=== PATIENT | female | born 1970 | race Caucasian/White ===

== ENCOUNTER → 2016-08-25 | Day surgery (SDC) | payer BC ==
[2016-08-18 12:17] VITALS: BMI 25.0
[~2016-08-25] VITALS: Ht 162.6 cm; Wt 68.2 kg
[~2016-08-25] MED LIST: ARMOUR THYROID PO; BCPILLS PO; GABA1CAP5 PO; LIDOCAINE HCL 2% 2 ML VIAL (20MG/ML) ONE; MIDAZOLAM HCL 1 MG/ML 2ML VIAL ONE; ONDANSETRON INJ 2 MG/ML 2 ML VIAL ONE; PROPOFOL IV EMULSION 10 MG/ML 20 ML VIAL IV ONE; SODIUM CHLORIDE 0.9% 500ML 500 ML IV ONE; THYR15TA PO
[2016-08-25 09:39] VITALS: Ht 162.6 cm; Wt 68.2 kg
--- NOTE | 2016-08-25 10:23 | Endo History and Physical ---
History & Physical Date of Service: Aug 25, 2016. Chief Complaint: RECTAL PAIN Referring Physician: DR. DONNY HAYNES History of Present Illness 46 yo CF who presents for colonoscopy secondary to rectal pain. Past Medical History Thyroid Disease Past Surgical History Hx Cardiac Surgery: No Hx Internal Defibrillator: No Hx Pacemaker: No Hx Abdominal Surgery: No Hx of Implantable Prosthesis: No Hx Post-Op Nausea and Vomiting: No Hx Cancer Surgery: No Hx Thoracic Surgery: No Hx Orthopedic: Yes (LT ACHILLES TENDON REPAIR, SI JOINT INJECTIONS) Hx Urinary Tract Surgery: No Family History Polyp Social History Smoking Status: Never Smoker Hx Substance Use: No Hx Alcohol Use: Yes (SOCIAL) Allergies Coded Allergies: Morphine (Verified Allergy, Severe, ANAPHYLAXIS, 08/18/16) Prednisone (Verified Allergy, Intermediate, RASH, 08/18/16) ALLERGY TESTED OK FOR METHYLPREDNISONE Codeine (Verified Adverse Reaction, Intermediate, GI UPSET, 08/18/16) Hydrocodone (Verified Adverse Reaction, Intermediate, GI UPSET, 08/18/16) Current Medications Reported Home Medications Medications Dose Route/Sig Max Daily Dose Days Date Category [[place] Thyroid] 60 Mg PO QAM 06/05/16 Reported Neurontin (Gabapentin) 400 Mg Cap 400 Mg PO TID 06/05/16 Reported Control Pills (Miscellaneous) Tab 1 Tab PO HS 06/05/16 Reported [place] Thyroid (Thyroid) 15 Mg Tab 1 Tab PO QAM 06/05/16 Reported Vital Signs Weight (Kilograms): 68.18 Height (Feet): 5 Height (Inches): 4 Date Time Temp Pulse Resp B/P Pulse Ox O2 Delivery O2 Flow Rate FiO2 08/25/16 09:50 36.6 103 18 127/64 96 Room Air Physical Exam General Appearance: WD/WN, no apparent distress Respiratory/Chest: Auscultation: breath sounds normal Cardiovascular: Heart Auscultation: RRR Abdomen: Bowel Sounds: normal Inspection & Palpation: soft, non-distended, no tenderness, guarding & rebound Assessment and Plan Assessment: 46 yo CF who presents for colonoscopy secondary to rectal pain. Plan: Proceed with colonoscopy.
--- NOTE | 2016-08-25 10:45 | GI REPORT ---
Procedure Date: 08/25/2016 10:01 AM Procedure: Colonoscopy Indications: Rectal pain Medicines: Monitored Anesthesia Care Complications: No immediate complications. Estimated Blood Loss: Estimated blood loss: none. Procedure: Pre-Anesthesia Assessment: - Prior to the procedure, a History and Physical was performed, and patient medications and allergies were reviewed. The patient's tolerance of previous anesthesia was also reviewed. The risks and benefits of the procedure and the sedation options and risks were discussed with the patient. All questions were answered, and informed consent was obtained. Prior Anticoagulants: The patient has taken no previous anticoagulant or antiplatelet agents. ASA Grade Assessment: II - A patient with mild systemic disease. After reviewing the risks and benefits, the patient was deemed in satisfactory condition to undergo the procedure. After I obtained informed consent, the scope was passed under direct vision. Throughout the procedure, the patient's blood pressure, pulse, and oxygen saturations were monitored continuously. The scope was introduced through the anus and advanced to the terminal ileum. The colonoscopy was performed without difficulty. The patient tolerated the procedure well. The quality of the bowel preparation was good. The terminal ileum, ileocecal valve, appendiceal orifice, and rectum were photographed. Findings: Non-bleeding internal hemorrhoids were found during retroflexion. The hemorrhoids were small. The exam was otherwise without abnormality. Impression: - Non-bleeding internal hemorrhoids. - The examination was otherwise normal. - No specimens collected. Recommendation: - Resume previous diet. - Continue present medications. - Repeat colonoscopy in 10 years for surveillance. - Return to primary care physician as previously scheduled. Jose Ramon Nettles DO 08/25/2016 10:44:32 AM This report has been signed electronically. Note Initiated On: 08/25/2016 10:01 AM I attest to the content of the Intraoperative Record and orders documented therein, exceptions below
--- NOTE | 2016-08-25 11:08 | Anesthesiology Progress Note ---
Anesthesia Post Op Note Date & Time Aug 25, 2016 at 11:09 Vital Signs Pain Intensity: 0 Vital Signs Past 12 Hours Date Time Temp Pulse Resp B/P Pulse Ox O2 Delivery O2 Flow Rate FiO2 08/25/16 10:57 87 18 124/78 97 Room Air 08/25/16 10:44 68 18 130/61 97 Room Air 08/25/16 09:50 36.6 103 18 127/64 96 Room Air Notes Mental Status: alert / awake / arousable, participated in evaluation Pt Amnestic to Procedure: Yes Nausea / Vomiting: adequately controlled Pain: adequately controlled Airway Patency, RR, SpO2: stable & adequate BP & HR: stable & adequate Hydration State: stable & adequate Anesthetic Complications: no major complications apparent
[2016-08-25 11:14] VITALS: BP 124/84; PULSE 87; O2SAT 98
--- NOTE | 2016-08-25 11:21 | Discharge Instructions ---
Endoscopy Patient Instructions Date / Procedure(s) Performed Aug 25, 2016. Colonoscopy Allergy Information Coded Allergies: Morphine (Verified Allergy, Severe, ANAPHYLAXIS, 08/18/16) Prednisone (Verified Allergy, Intermediate, RASH, 08/18/16) ALLERGY TESTED OK FOR METHYLPREDNISONE Codeine (Verified Adverse Reaction, Intermediate, GI UPSET, 08/18/16) Hydrocodone (Verified Adverse Reaction, Intermediate, GI UPSET, 08/18/16) Discharge Date / Findings Aug 25, 2016. Internal hemorrhoids Medication Instructions Start Anusol HC Suppository: Insert 1 Per rectum daily at bedtime for 10 days OK to resume all other medications. Reported Home Medications Medications Dose Route/Sig Max Daily Dose Days Date Category [[place] Thyroid] 60 Mg PO QAM 06/05/16 Reported Neurontin (Gabapentin) 400 Mg Cap 400 Mg PO TID 06/05/16 Reported Control Pills (Miscellaneous) Tab 1 Tab PO HS 06/05/16 Reported [place] Thyroid (Thyroid) 15 Mg Tab 1 Tab PO QAM 06/05/16 Reported Provider Instructions Activity Restrictions - No exercising or heavy lifting for 24 hours. - Do not drink alcohol the day of the procedure. - Do not drive a car or operate machinery until the day after the procedure. - Do not make any important decisions or sign important papers in 24 hours after the procedure. Following Day: - Return to full activity which may include returning to work/school. Diet Start your diet with liquids and light foods (jello, soup, juice, toast). Then eat your usual diet if not nauseated. Treatment For Common After Affects For mild abdominal pain, bloating, or excessive gas: - Rest - Eat lightly - Lie on right side Follow-Up Information Follow-up with DR. DONNY HAYNES as scheduled Anesthesia Information What You Should Know You have had a procedure that required some medicine to reduce anxiety and discomfort. This treatment is called moderate sedation. After receiving the treatment, you may be sleepy, but you will be able to breathe on your own. The effects of the treatment may last for several hours. Follow these instructions along with Activity/Diet recommendations noted above: * Do NOT do anything where dizziness or clumsiness would be dangerous. * Rest quietly at home today, then you can be up and about tomorrow. * Have a responsible person stay with you the rest of today. * You may have had an I.V. today. If so, you may take the dressing off later today. Recommendations Call your doctor if: * Trouble breathing * Continuous vomiting for more than 24 hours * Temperature above 101 degrees * Severe abdominal pain or bloating * Pain not relieved by pain medicine ordered * There is increased drainage or redness from any incision * A large amount of rectal bleeding greater than 2-3 tablespoons. (If you had a polyp/s removed or have hemorrhoids, a small amount of blood - from the rectum is to be expected.) * You have any unanswered questions or concerns. IN THE EVENT OF A SERIOUS EMERGENCY, GO TO THE NEAREST EMERGENCY ROOM Your discharge instructions were prepared by provider Jose Ramon Nettles. Patient Instructions Signature Page Katarina Moore Patient (or Guardian) Signature/Date: I have read and understand the instructions given to me by my caregivers. Caregiver/RN/Doctor Signature/Date: The above-named patient and/or guardian has received patient instructions on this date. + Original Patient Signature Page (only) stays with chart. Please make copy for patient.
== END | disposition home or self-care (01) ==
LOC: C.GI 09:12
PROVIDERS: ATTEND Internal Medicine
DX: K62.89 Other specified diseases of anus and rectum (principal); K64.8 Other hemorrhoids; Z83.71 Family history of colonic polyps

== ENCOUNTER → 2016-09-13 | Outpatient (CLI) | payer BC ==
[~2016-09-13] MED LIST changes: -LIDOCAINE HCL 2% 2 ML VIAL (20MG/ML) ONE; -MIDAZOLAM HCL 1 MG/ML 2ML VIAL ONE; -ONDANSETRON INJ 2 MG/ML 2 ML VIAL ONE; -PROPOFOL IV EMULSION 10 MG/ML 20 ML VIAL IV ONE; -SODIUM CHLORIDE 0.9% 500ML 500 ML IV ONE
== END | disposition home or self-care (01) ==
LOC: C.LABBC 14:44
PROVIDERS: ATTEND Internal Medicine Endocrinology, Diabetes & Metabolism
DX: E03.9 Hypothyroidism, unspecified (principal)

== ENCOUNTER → 2016-09-25 | Outpatient (CLI) | payer BC ==
[2016-09-25 11:13] LABS: CALCIUM 8.5 mg/dl (8.5-10.1); GLUCOSE,FASTING 173 mg/dl (70-99)
[2016-09-25 11:18] LABS: ESTIMATED AVERAGE GLUCOSE 103 mg/dl; HA1C FLAG Normal (Normal)
[2016-09-25 11:26] LABS: THYROID STIMULATING HORMONE < 0.005 uIu/ml (0.300-4.500)
== END | disposition home or self-care (01) ==
LOC: C.LABBC 08:17
PROVIDERS: ATTEND Internal Medicine Endocrinology, Diabetes & Metabolism
DX: E05.90 Thyrotoxicosis, unspecified without thyrotoxic crisis or storm (principal); R73.01 Impaired fasting glucose; E83.51 Hypocalcemia

== ENCOUNTER → 2016-10-27 | Outpatient (CLI) | payer BC ==
[2016-10-27 15:14] LABS: THYROID STIMULATING HORMONE 0.259 uIu/ml (0.300-4.500)
== END | disposition home or self-care (01) ==
LOC: C.LABBC 11:50
PROVIDERS: ATTEND Internal Medicine Endocrinology, Diabetes & Metabolism
DX: E05.90 Thyrotoxicosis, unspecified without thyrotoxic crisis or storm (principal)

== ENCOUNTER → 2016-11-06 | Outpatient (CLI) | payer BC ==
[2016-11-06 18:19] LABS: THYROID STIMULATING HORMONE 4.27 uIu/ml (0.300-4.500)
== END | disposition home or self-care (01) ==
LOC: C.LABBC 12:32
PROVIDERS: ATTEND Internal Medicine Endocrinology, Diabetes & Metabolism
DX: E06.3 Autoimmune thyroiditis (principal); E05.00 Thyrotoxicosis with diffuse goiter without thyrotoxic crisis or storm

== ENCOUNTER → 2016-11-17 | Outpatient (CLI) | payer BC ==
[2016-11-17 15:28] LABS: THYROID STIMULATING HORMONE 2.52 uIu/ml (0.300-4.500)
== END | disposition home or self-care (01) ==
LOC: C.LABBC 09:43
PROVIDERS: ATTEND Internal Medicine Endocrinology, Diabetes & Metabolism
DX: E05.90 Thyrotoxicosis, unspecified without thyrotoxic crisis or storm (principal)

== ENCOUNTER → 2016-11-28 | Outpatient (CLI) | payer BC | END | disposition home or self-care (01) | LOC: C.PAPS 14:30 | PROVIDERS: ATTEND Obstetrics & Gynecology | DX: Z01.419 Encounter for gynecological examination (general) (routine) without abnormal findings (principal); N94.810 Vulvar vestibulitis ==

== ENCOUNTER → 2016-11-28 | Outpatient (CLI) | payer BC | END | disposition home or self-care (01) | LOC: C.LABSPEC 13:24 | PROVIDERS: ATTEND Obstetrics & Gynecology | DX: N94.810 Vulvar vestibulitis (principal) ==

== ENCOUNTER → 2016-12-01 | Outpatient (CLI) | payer BC ==
[2016-12-01 15:07] LABS: THYROID STIMULATING HORMONE 6.13 uIu/ml (0.300-4.500)
== END | disposition home or self-care (01) ==
LOC: C.LABBC 09:48
PROVIDERS: ATTEND Internal Medicine Endocrinology, Diabetes & Metabolism
DX: E05.90 Thyrotoxicosis, unspecified without thyrotoxic crisis or storm (principal)

== ENCOUNTER → 2017-01-04 | Outpatient (CLI) | payer BC ==
[2017-01-04 17:06] LABS: THYROID STIMULATING HORMONE 6.04 uIu/ml (0.300-4.500)
== END | disposition home or self-care (01) ==
LOC: C.LABBC 15:13
PROVIDERS: ATTEND Internal Medicine Endocrinology, Diabetes & Metabolism
DX: E06.3 Autoimmune thyroiditis (principal); E05.90 Thyrotoxicosis, unspecified without thyrotoxic crisis or storm; E05.00 Thyrotoxicosis with diffuse goiter without thyrotoxic crisis or storm

== ENCOUNTER → 2017-01-22 | Outpatient (CLI) | payer BC ==
[2017-01-22 11:47] LABS: THYROID STIMULATING HORMONE 2.09 uIu/ml (0.300-4.500)
== END | disposition home or self-care (01) ==
LOC: C.LABBC 07:39
PROVIDERS: ATTEND Internal Medicine Endocrinology, Diabetes & Metabolism
DX: E06.3 Autoimmune thyroiditis (principal); R73.01 Impaired fasting glucose

== ENCOUNTER → 2017-04-13 | Outpatient (CLI) | payer BC ==
[2017-04-13 16:54] LABS: CALCIUM 8.3 mg/dl (8.5-10.1)
[2017-04-13 17:09] LABS: THYROID STIMULATING HORMONE 2.41 uIu/ml (0.300-4.500)
== END | disposition home or self-care (01) ==
LOC: C.LABBC 15:14
PROVIDERS: ATTEND Internal Medicine Endocrinology, Diabetes & Metabolism
DX: E83.51 Hypocalcemia (principal); E05.90 Thyrotoxicosis, unspecified without thyrotoxic crisis or storm

== ENCOUNTER → 2017-05-01 | Outpatient (CLI) | payer BC ==
--- NOTE | 2017-05-01 08:27 | DIAGNOSTIC IMAGING REPORT ---
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 COMPARISON STUDY: No previous studies for comparison. TECHNIQUE: Utilizing a 1.5 Renae magnet and dedicated coil, multiplanar, multi echo imaging of the bilateral temporomandibular joints was performed without intravenous contrast in the open and closed mouth positions. FINDINGS: Right temporomandibular joint: There is anterior displacement of the disc on the closed mouth images. In addition, there is abnormal morphology of the articular disc which suggests a tear. Capture is noted in the open-mouth position. The morphology of the right mandibular condyle is normal. Left temporomandibular joint: There is abnormal morphology of the articular discs which suggests a tear. The articular disc is anteriorly displaced on the closed mouth view and does not appear on the open mouth view. There is slight abnormal morphology of the left mandibular condyle. No additional abnormalities are identified on since exam. IMPRESSION: 1. Anterior displacement of the left articular disc without capture on the open-mouth views. Abnormal morphology of the left articular disc which represents a tear. 2. Mild abnormal morphology of the left mandibular condyle which suggest arthritis. 3. Anterior displacement of the right articular disc with capture on the open-mouth views. Abnormal morphology of the right articular disc which represents a tear. Electronically signed by: Benjy Anders M.D. 05/01/2017 8:26 AM Dictated Date/Time: 05/01/2017 7:44 AM
== END | disposition home or self-care (01) ==
LOC: C.MRI 05:59
PROVIDERS: ATTEND Family Medicine
DX: M26.629 Arthralgia of temporomandibular joint, unspecified side (principal)

== ENCOUNTER → 2017-05-07 | Outpatient (CLI) | payer BC | END | disposition home or self-care (01) | LOC: C.LABSPEC 18:16 | PROVIDERS: ATTEND Physician Assistant | DX: N94.9 Unspecified condition associated with female genital organs and menstrual cycle (principal) ==

== ENCOUNTER → 2017-06-09 | Outpatient (CLI) | payer BC ==
[2017-06-09 13:25] LABS: URINE APPEARANCE TURBID (CLEAR); URINE BILIRUBIN NEG (NEG); URINE COLOR YELLOW; URINE EPITHELIAL CELL AUTO >30 /lpf (0-5); URINE NITRITE NEG (NEG); URINE SPECIFIC GRAVITY 1.022 (1.000-1.030); UROBILINOGEN NEG (NEG); ZZUR CULT IF INDIC CLEAN CATCH NO
[2017-06-09 13:26] LABS: MANUAL MICROSCOPIC REQUIRED? NO; REVIEW REQ? NO
== END | disposition home or self-care (01) ==
LOC: C.LABSPEC 13:29
PROVIDERS: ATTEND Internal Medicine
DX: R35.0 Frequency of micturition (principal)

== ENCOUNTER → 2017-06-15 | Outpatient (CLI) | payer BC ==
[2017-06-15 19:27] LABS: URINE APPEARANCE CLOUDY (CLEAR); URINE BILIRUBIN NEG (NEG); URINE COLOR YELLOW; URINE EPITHELIAL CELL AUTO >30 /lpf (0-5); URINE NITRITE NEG (NEG); URINE PH 7.5 (4.5-7.5); URINE SPECIFIC GRAVITY 1.009 (1.000-1.030); UROBILINOGEN NEG (NEG)
[2017-06-15 19:28] LABS: MANUAL MICROSCOPIC REQUIRED? NO; REVIEW REQ? NO
== END | disposition home or self-care (01) ==
LOC: C.LABSPEC 17:40
PROVIDERS: ATTEND Family Medicine
DX: R35.0 Frequency of micturition (principal)

== ENCOUNTER → 2017-06-25 | Outpatient (CLI) | payer BC ==
[2017-06-25 14:12] LABS: MANUAL MICROSCOPIC REQUIRED? NO; URINE APPEARANCE CLEAR (CLEAR); URINE BILIRUBIN NEG (NEG); URINE COLOR YELLOW; URINE NITRITE NEG (NEG); URINE PH 5.5 (4.5-7.5); UROBILINOGEN NEG (NEG)
[2017-06-25 14:19] LABS: REVIEW REQ? NO
== END | disposition home or self-care (01) ==
LOC: C.LABSPEC 13:39
PROVIDERS: ATTEND Physician Assistant
DX: R39.9 Unspecified symptoms and signs involving the genitourinary system (principal)

== ENCOUNTER → 2017-07-06 | Outpatient (CLI) | payer BC ==
[~2017-07-06] MED LIST changes: +ACET650S10 PO; +GABA-1220 PO; -GABA1CAP5 PO; +HYDR-5688 PO; +NITR1CAP33 PO; +ONDA4TAB10 SL; +ONDA4TAB46 PO; +TAMS0.4C38 PO
--- NOTE | 2017-07-06 12:43 | DIAGNOSTIC IMAGING REPORT ---
KUB CLINICAL HISTORY: Urinary frequency. Urinary urgency. COMPARISON STUDY: CT of the abdomen and pelvis and abdominal series July 25, 2014. FINDINGS: Note is made of a 5 mm left pelvic calcification which is new since exam of May 04, 2015. This could reflect a distal left ureteral calculus. There may be an adjacent punctate ureteral calculus. No definite renal calculi are identified although the renal shadows are partially obscured by stool. Bowel gas pattern is normal. IMPRESSION: 5 mm left pelvic calcification, new since exam of May 12, 2015. This could reflect a distal left ureteral calculus. A phlebolith could appear similar. Electronically signed by: Benjy Anders M.D. 07/06/2017 12:42 PM Dictated Date/Time: 07/06/2017 12:38 PM
== END | disposition home or self-care (01) ==
LOC: C.RAD 11:56
PROVIDERS: ATTEND Urology
DX: R35.0 Frequency of micturition (principal); R39.15 Urgency of urination

== ENCOUNTER → 2017-07-26 | Outpatient (CLI) | payer BC ==
[~2017-07-26] MED LIST changes: -ACET650S10 PO; -GABA-1220 PO; +GABA1CAP5 PO; -HYDR-5688 PO; -NITR1CAP33 PO; -ONDA4TAB10 SL; -ONDA4TAB46 PO; +OPTIRAY 300 IV PRN; -TAMS0.4C38 PO
--- NOTE | 2017-07-26 14:22 | DIAGNOSTIC IMAGING REPORT ---
IVP CLINICAL HISTORY: Ureteral stone. COMPARISON STUDY: KUB July 06, 2017. TECHNIQUE: A stage builder KUB was obtained. Intravenous pyelogram was then performed following intravenous injection of 100 cc of Optiray 320 IV. FINDINGS: Technical Account Manager image demonstrates no change in position of a 6 mm left calcific calcification. This is shown to represent a distal left ureteral calculus on subsequent images. A punctate faint right pelvic calcification likely reflects a phlebolith. Both nephrograms are symmetric. There is no hydronephrosis. Note is made of slight dilatation of the distal left ureter just proximal to the distal left ureteral catheter was. The caliber of the mid to proximal left ureter is normal. No additional urinary calculi are identified on this exam. There is no upper tract filling defect. No significant postvoid residual is noted. IMPRESSION: No change in position of a 6 mm distal left ureteral calculus which results in only minimal distal ureteral dilatation. No left hydronephrosis. Electronically signed by: Benjy Anders M.D. 07/26/2017 2:21 PM Dictated Date/Time: 07/26/2017 2:12 PM
== END | disposition home or self-care (01) ==
LOC: C.RAD 12:42
PROVIDERS: ATTEND Urology
DX: N20.1 Calculus of ureter (principal)

== ENCOUNTER → 2017-08-06 | Outpatient (CLI) | payer BC ==
[~2017-08-06] MED LIST changes: -OPTIRAY 300 IV PRN
--- NOTE | 2017-08-06 09:02 | DIAGNOSTIC IMAGING REPORT ---
ULTRASOUND RIGHT UPPER QUADRANT ABDOMEN CLINICAL HISTORY: Right upper quadrant abdominal pain. COMPARISON STUDY: Abdominal CT dated 07/25/2014. TECHNIQUE: Real-time, grayscale, and color flow sonography of the right upper quadrant of the abdomen was performed. Images are reviewed in the transverse and longitudinal planes. FINDINGS: Liver: The liver is normal in size and echotexture. There is no intrahepatic biliary ductal dilatation. The main portal vein is patent. Gallbladder: The gallbladder is normal in appearance. No gallstones are identified. There is no gallbladder wall thickening or pericholecystic fluid. A sonographic Cerda's sign is reportedly absent. The common bile duct measures up to 0.4 cm in diameter. Pancreas: Visualized portions of the pancreatic head and body are normal in appearance. Right kidney: Survey images of the right kidney demonstrate normal size and echotexture. There is no hydronephrosis. Ascites: None. IMPRESSION: Unremarkable sonographic assessment of the right upper quadrant. No gallstones are identified. Electronically signed by: Yohannes Howard M.D. 08/06/2017 9:01 AM Dictated Date/Time: 08/06/2017 9:00 AM
--- NOTE | 2017-08-06 10:24 | DIAGNOSTIC IMAGING REPORT ---
PA CHEST WITH RIGHT-SIDED RIB SERIES CLINICAL HISTORY: Right-sided chest wall pain. No reported history of trauma. FINDINGS: A PA chest radiograph with 4 additional views from a right-sided rib series is compared to study dated 07/25/2014. The cardiomediastinal silhouette is unremarkable. The lungs and pleural spaces are clear. No pneumothorax is seen. There is no radiographic evidence of right-sided rib fracture on the rib series. The remainder of the bony thorax is grossly intact. IMPRESSION: 1. No active disease in the chest. 2. There is no radiographic evidence of right-sided rib fracture on the rib series as clinically queried. Electronically signed by: Yohannes Howard M.D. 08/06/2017 10:22 AM Dictated Date/Time: 08/06/2017 10:21 AM
== END | disposition home or self-care (01) ==
LOC: C.ULTR 08:27
PROVIDERS: ATTEND Nurse Practitioner Adult Health
DX: R10.11 Right upper quadrant pain (principal); R07.81 Pleurodynia

== ENCOUNTER 2017-08-16 11:42 | Emergency (ER) | payer BC ==
[~2017-08-16] VITALS: Ht 162.6 cm; Wt 72.0 kg
[~2017-08-16 11:42] MED LIST changes: -ACET650S10 PO; -HYDR-5688 PO; -NITR1CAP33 PO; -ONDA4TAB10 SL; -ONDA4TAB46 PO; -TAMS0.4C38 PO
[2017-08-16 11:57] VITALS: Ht 162.6 cm; Wt 72.0 kg
[2017-08-16] MEDS ORDERED: ONDANSETRON INJ 2 MG/ML 2 ML VIAL IV STA (12:26)
[2017-08-16] MEDS ORDERED: FENTANYL CITRATE INJ 50 MCG/1 ML 2 ML VIAL IV STA ×2 (12:26→13:32)
[2017-08-16] MEDS ORDERED: SODIUM CHLORIDE 0.9% 1000ML 1,000 ML IV STA (12:26)
[2017-08-16 12:53] LABS: BASO % 0.1 %; BASO ABS # 0.02 K/uL (0-0.2); EOS % 0.5 %; EOS ABS # 0.07 K/uL (0-0.5); HEMATOCRIT 39.4 % (37-47); HEMOGLOBIN 14.1 g/dL (12.0-16.0); IG# 0.04 K/uL (0.00-0.02); LYMPH % 6.4 %; LYMPH ABS # 0.86 K/uL (1.2-3.4); MEAN CELL VOLUME 84.7 fL (80-100); MEAN CORPUSCULAR HEMOGLOBIN 30.3 pg (25-34); MEAN CORPUSCULAR HGB CONC 35.8 g/dl (32-36); MEAN PLATELET VOLUME 10.3 fL (7.4-10.4); MONO % 4.7 %; MONO ABS # 0.63 K/uL (0.11-0.59); NEUT ABS # 11.86 K/uL (1.4-6.5); PLATELET COUNT 224 K/uL (130-400); RED CELL DISTRIBUTION WIDTH CV 12.1 % (11.5-14.5); WHITE BLOOD COUNT 13.48 K/uL (4.8-10.8)
[2017-08-16 13:09] LABS: ALBUMIN 3.7 gm/dl (3.4-5.0); CALCIUM 8.5 mg/dl (8.5-10.1); CREATININE 1.18 mg/dl (0.60-1.20); POTASSIUM 3.5 mmol/L (3.5-5.1)
[2017-08-16 13:12] LABS: TOTAL PROTEIN 7.2 gm/dl (6.4-8.2)
--- NOTE | 2017-08-16 14:53 | DIAGNOSTIC IMAGING REPORT ---
CT SCAN OF THE ABDOMEN AND PELVIS WITHOUT IV CONTRAST CLINICAL HISTORY: Left flank pain. COMPARISON STUDY: Abdominal CT dated 07/25/2014. TECHNIQUE: CT scan of the abdomen and pelvis is performed from the lung bases to the proximal femora. Images are reviewed in the axial, sagittal, and coronal planes. IV contrast was not administered for this examination. A dose lowering technique was utilized adhering to the principles of ALARA. CT DOSE: 1029.94 mGycm FINDINGS: Lung bases: The heart is normal in size and without pericardial effusion. The lung bases are clear noting dependent atelectasis. Liver: The unenhanced liver is normal in size, contour, and attenuation. There is no intrahepatic biliary ductal dilatation. Gallbladder: Unremarkable. Spleen: Normal in size and attenuation. Pancreas: Unremarkable. Adrenal glands: Unremarkable. Kidneys: The unenhanced kidneys are normal in size. There is a 7 mm obstructing calculus located just above the left vesicoureteral junction seen on image #390. This causes moderate left hydroureteronephrosis, with associated left-sided perinephric stranding and fluid. There is no right-sided hydronephrosis. There are no additional calculi are identified in either kidney. There is no evidence of contour deforming renal mass lesion. Abdominal vasculature: The abdominal aorta is normal in course and caliber noting scattered foci of atherosclerotic calcification. Bowel: The small bowel and colon are normal in course and caliber. The appendix is well-visualized and normal. Peritoneum: There is no intraperitoneal free air or abdominal ascites. Lymphadenopathy: None. Pelvic viscera: The bladder, uterus, and adnexa are normal as visualized. Trace free fluid is noted in the cul-de-sac. Skeletal structures: No lytic or blastic lesions are seen. There are bilateral pars defects at L5. IMPRESSION: 1. There is a 7 mm obstructing calculus in the distal left ureter just above the vesicoureteral junction. This causes moderate left hydroureteronephrosis. 2. No additional calculi are identified in either kidney. 3. There is trace free fluid in cul-de-sac, likely within physiologic limits. Electronically signed by: Yohannes Howard M.D. 08/16/2017 2:52 PM Dictated Date/Time: 08/16/2017 2:37 PM
[2017-08-16] MEDS ORDERED: HYDR-5688 PO (15:29)
[2017-08-16] MEDS ORDERED: TAMS0.4C38 PO (15:29)
[2017-08-16] MEDS ORDERED: ONDA4TAB10 SL (15:29)
[2017-08-16 15:45] VITALS: BP 134/78; PULSE 76; O2SAT 97
--- NOTE | 2017-08-17 06:19 | EMERGENCY ROOM VISIT NOTE ---
ED Visit Note First contact with patient: 12:16 Chief Complaint: Left flank pain. History of Present Illness: Ms. Moore is a 47 year-old white female complaining of left flank pain. Historically patient reports kidney stones and gallbladder disease; patient will be having an ERCP in 2 days by gastroenterology and reports that she has follow-up with urology in approximately one week for possible stent placement and lithotripsy. Patient reports acute onset of left flank pain that started approximately 3-4 hours ago. He reports the pain woke her from sleep. Since the onset of her pain it has been constant. She describes the pain as a sharp sensation. She rates her discomfort 9/10. The pain is radiating around the abdomen and into the left lower quadrant and into her genitalia area. She has not identified any aggravating or alleviating factors related to the pain. She has not taken any medication for pain prior to arrival at the hospital. Associated with her pain she reports intermittently she's had some mild chills but no anya fever and she has feelings of incomplete voiding and increased urinary frequency and nausea without vomiting.. Patient denies sweats, skin eruptions, skin color changes, upper respiratory tract symptoms, shortness of breath, chest pain, diarrhea, constipation, rectal bleeding, black/tarry stools, urinary burning, hematuria, vaginal bleeding, vaginal discharge, genital paresthesias, bowel and bladder dysfunction, lower extremity weakness/numbness/tingling. Review of Systems: As noted above in history of present illness. All body systems were reviewed and found to be negative as noted above. Past Medical History: As previously noted, hypothyroidism, status post unspecified anal lesion removal, Current Medications: control, gabapentin. Allergies to Medications: Codeine, morphine, Percocet and prednisone; patient's allergies to codeine and Percocet are nausea/vomiting.. Social History: Patient is currently employed; she feels safe in her home environment; she denies tobacco use and admits to alcohol use. Physical Examination: Vital Signs: Date Time Temp Pulse Resp B/P (MAP) Pulse Ox O2 Delivery O2 Flow Rate FiO2 08/16/17 15:45 76 18 134/78 97 08/16/17 13:49 70 18 157/89 100 Room Air 08/16/17 13:00 55 08/16/17 11:57 64 20 158/87 100 Room Air GENERAL: 47-year-old female in moderate distress due to pain, nontoxic-appearing , afebrile and hemodynamically stable. NEUROLOGICAL: Awake, alert and oriented to person, place and time. Answering questions appropriately and following commands. Normal gait. Good hand eye coordination. SKIN: Warm, dry and pink. No soft tissue eruptions or trauma noted. HEENT: Atraumatic and normocephalic. PERRLA. Sclera white and conjunctiva pink. Oral cavity moist and pink. Pharynx is nonerythematous or edematous. Speech normal. No lymphadenopathy. Trachea midline. No jugular venous distention. BACK: No tenderness over the bony spine. No CVA tenderness. THORAX: Lungs sounds are clear to auscultation and equal bilaterally with symmetrical chest wall. No wheezing, rales or rhonchi. No crepitus, tenderness , subcutaneous air or deformities noted. HEART: Regular rate and rhythm. No gallops, rubs or murmurs are appreciated. ABDOMEN: Flat, soft and nontender. Positive bowel sounds in all quadrants. No guarding, rigidity or organomegaly. EXTREMITIES: Moves all extremities well on command and with purpose. All distal neurovascular statuses are intact and equal bilaterally. ED Course: Patient is assessed as noted above. Patient's medication list was reviewed. Laboratory Testing: Test 08/16/17 12:36 08/16/17 12:40 Range/Units Urine Color YELLOW Urine Appearance CLEAR CLEAR Urine pH 5.0 4.5-7.5 Urine Specific [place] 1.024 1.000-1.030 Urine Protein TRACE NEG Urine Glucose (UA) NEG NEG Urine Ketones NEG NEG Urine Occult Blood 2+ NEG Urine Nitrite NEG NEG Urine Bilirubin NEG NEG Urine Urobilinogen NEG NEG Urine Leukocyte Esterase NEG NEG Urine WBC (Auto) 1-5 0-5 /hpf Urine RBC (Auto) 10-30 0-4 /hpf Urine Hyaline Casts (Auto) 1-5 0-5 /lpf Urine Epithelial Cells (Auto) >30 0-5 /lpf Urine Bacteria (Auto) NEG NEG Urine Test NEG NEG White Blood Count 13.48 4.8-10.8 K/uL Red Blood Count 4.65 4.2-5.4 M/uL Hemoglobin 14.1 12.0-16.0 g/dL Hematocrit 39.4 37-47 % Mean Corpuscular Volume 84.7 80-100 fL Mean Corpuscular Hemoglobin 30.3 25-34 pg Mean Corpuscular Hemoglobin Concent 35.8 32-36 g/dl Platelet Count 224 130-400 K/uL Mean Platelet Volume 10.3 7.4-10.4 fL Neutrophils (%) (Auto) 88.0 % Lymphocytes (%) (Auto) 6.4 % Monocytes (%) (Auto) 4.7 % Eosinophils (%) (Auto) 0.5 % Basophils (%) (Auto) 0.1 % Neutrophils # (Auto) 11.86 1.4-6.5 K/uL Lymphocytes # (Auto) 0.86 1.2-3.4 K/uL Monocytes # (Auto) 0.63 0.11-0.59 K/uL Eosinophils # (Auto) 0.07 0-0.5 K/uL Basophils # (Auto) 0.02 0-0.2 K/uL RDW Standard Deviation 37.0 36.4-46.3 fL RDW Coefficient of Variation 12.1 11.5-14.5 % Immature Granulocyte % (Auto) 0.3 % Immature Granulocyte # (Auto) 0.04 0.00-0.02 K/uL Sodium Level 137 136-145 mmol/L Potassium Level 3.5 3.5-5.1 mmol/L Chloride Level 106 98-107 mmol/L Carbon Dioxide Level 22 21-32 mmol/L Anion Gap 9.0 3-11 mmol/L Blood Urea Nitrogen 10 7-18 mg/dl Creatinine 1.18 0.60-1.20 mg/dl Est Creatinine Clear Calc Drug Dose 57.4 ml/min Estimated GFR () 63.6 Estimated GFR (Non- 54.9 BUN/Creatinine Ratio 8.8 10-20 Random Glucose 108 70-99 mg/dl Calcium Level 8.5 8.5-10.1 mg/dl Total Bilirubin 0.4 0.2-1 mg/dl Direct Bilirubin 0.1 0-0.2 mg/dl Aspartate Amino Transf (AST/SGOT) 13 15-37 U/L Alanine Aminotransferase (ALT/SGPT) 21 12-78 U/L Alkaline Phosphatase 51 45-117 U/L Total Protein 7.2 6.4-8.2 gm/dl Albumin 3.7 3.4-5.0 gm/dl Lipase 84 73-393 U/L Noncontrast Abdominal/Pelvic CT: Was reviewed by myself and read by the radiologist showing a 7 mm obstructing calculus in the distal left ureter just above the vesicoureteral junction causing moderate left hydroureteronephrosis. And trace fluid was noted in the cul-de-sac. Patient was hydrated with normal saline and received a total of 150 g of fentanyl IV and 40 g of Zofran IV. Patient was reassessed multiple times during her stay in the emergency department. Patient was educated about today's findings and instructed on her treatment plan ; she verbalized understanding and treatment with this plan. Clinical Impression: Left-sided nephrolithiasis with hydronephrosis. Decision-Making: Initially my differential diagnosis I considered nephrolithiasis, pyelonephritis, diverticulitis, constipation, ectopic and other causes. Disposition: Patient discharged home in stable condition accompanied by her ; prior to departure she was reassessed and subjectively reported she was feeling much better. She rated her discomfort 1/10 and reported resolution of nausea. Plan: Patient was placed on a sliding pain scale of acetaminophen and [place]; her name was checked in the state database and no red flags were noted and she was given appropriate narcotic precautions. Patient was given a prescription for Zofran 4 mg every 6 hours as needed for nausea/vomiting but I also encouraged her to use the medication 10 minutes before she took her Tyler. Patient was encouraged to stay well-hydrated. Patient was prescribed Flomax 0.4 mg once a day. Patient was encouraged to strain all urine and collect all stones for analysis. Patient was encouraged to keep her upcoming appointment with urology for definitive care and treatment. Patient was encouraged return ED for worsening/uncontrolled pain, uncontrolled vomiting, fevers, urinary burning, worsening increased urinary frequency or any new/concerning symptoms.
[2017-08-20] MEDS ORDERED: HYDR-5688 PO (08:28)
[2017-08-20] MEDS ORDERED: TAMS0.4C38 PO (08:29)
[2017-08-20] MEDS ORDERED: ONDA4TAB46 PO (08:29)
[2017-08-20] MEDS ORDERED: ACET650S10 PO (08:29)
== END 2017-08-16 15:45 | disposition home or self-care (01) ==
LOC: C.EDB 11:43
DX: N20.0 Calculus of kidney (principal); N13.30 Unspecified hydronephrosis; Z98.890 Other specified postprocedural states

== ENCOUNTER → 2017-08-16 | Outpatient (CLI) | payer BC ==
[~2017-08-16] MED LIST changes: +ACET650S10 PO; +HYDR-5688 PO; +NITR1CAP33 PO; +ONDA4TAB10 SL; +ONDA4TAB46 PO; +TAMS0.4C38 PO
== END | disposition home or self-care (01) ==
LOC: C.LAB 17:09
PROVIDERS: ATTEND Urology
DX: N20.1 Calculus of ureter (principal)

== ENCOUNTER 2017-08-21 08:44 | Day surgery (SDC) | payer BC ==
[2017-08-20 08:30] VITALS: Ht 162.6 cm; Wt 72.7 kg
--- NOTE | 2017-08-20 08:59 | PAT Medication Instructions ---
Service Date Aug 20, 2017. Current Home Medication List Acetaminophen (Tylenol), 650 MG PO PRN Control Pills ( Control Pills), 1 TAB PO HS Gabapentin (Neurontin), 400 MG PO TID Hydrocodone/Acetaminophen 5MG/325MG ([place] 5MG/325MG), 1-2 TABLETS PO Q6H PRN for N Ondansetron Hcl (Zofran), 4 MG PO SL PRN for N Tamsulosin Hcl (Flomax), 0.4 MG PO QPM Medication Instructions For Your Scheduled Surgery - Take the following medications the morning of surgery with a sip of water: Gabapentin (Neurontin), 400 MG PO TID Hydrocodone/Acetaminophen 5MG/325MG ([place] 5MG/325MG), 1-2 TABLETS PO Q6H PRN for N (if needed, can be taken up to four hours before surgery) Ondansetron Hcl (Zofran), 4 MG PO SL PRN for N (if needed) Acetaminophen (Tylenol), 650 MG PO PRN (if needed) - Take the following medications as scheduled the night before surgery: Tamsulosin Hcl (Flomax), 0.4 MG PO QPM Acetaminophen (Tylenol), 650 MG PO PRN (if needed) Control Pills ( Control Pills), 1 TAB PO HS Gabapentin (Neurontin), 400 MG PO TID Hydrocodone/Acetaminophen 5MG/325MG ([place] 5MG/325MG), 1-2 TABLETS PO Q6H PRN for N (if needed) Ondansetron Hcl (Zofran), 4 MG PO SL PRN for N (if needed) If you have any questions please call us at [phone] or [phone] or [phone]
[~2017-08-21] VITALS: Ht 162.6 cm; Wt 72.7 kg
[2017-08-21] VITALS (7 sets, daily range): BP systolic 142–175; BP diastolic 76–92; PULSE 62–91; TEMP 36.4–36.7; O2SAT 97–100
[~2017-08-21 08:44] MED LIST changes: +ACET650S10 PO; +CIPROFLOXACIN / D5W 400 MG IV SCH; +HYDR-5688 PO; +LACTATED RINGER'S 1000ML 1,000 ML IV SCH; +ONDA4TAB10 SL; +ONDA4TAB46 PO; +TAMS0.4C38 PO
[2017-08-21] MEDS ORDERED: NITR1CAP33 PO ×2 (09:20)
[2017-08-21] MEDS ORDERED: FENTANYL CITRATE INJ 50 MCG/1 ML 2 ML VIAL ONE (09:39)
[2017-08-21] MEDS ORDERED: PHENYLEPHRINE 100MCG/ML 5ML SYR ONE (09:39)
[2017-08-21] MEDS ORDERED: MIDAZOLAM HCL 1 MG/ML 2ML VIAL ONE ×2 (09:39→11:36)
[2017-08-21] MEDS ORDERED: EpHEDrine SULFATE 50MG/5ML SYR ONE (09:39)
[2017-08-21] MEDS ORDERED: LIDOCAINE HCL 2% 2 ML VIAL (20MG/ML) ONE (09:39)
[2017-08-21] MEDS ORDERED: PROPOFOL IV EMULSION 10 MG/ML 20 ML VIAL IV ONE ×2 (09:39→11:43)
[2017-08-21] MEDS ORDERED: PHENYLEPHRINE 100MCG/ML 5ML SYR IV PRN (09:45)
[2017-08-21] MEDS ORDERED: ONDANSETRON INJ 2 MG/ML 2 ML VIAL IV PRN (09:45)
[2017-08-21] MEDS ORDERED: MEPERIDINE HCL 25 MG/ML CARP IV PRN (09:45)
[2017-08-21] MEDS ORDERED: LABETALOL HCL IV 5 MG/ML 20ML IV PRN (09:45)
[2017-08-21] MEDS ORDERED: FLUMAZENIL 0.1 MG/1 ML 10 ML VIAL IV PRN (09:45)
[2017-08-21] MEDS ORDERED: ATROPINE SULFATE 0.1 MG/ML 5ML SYR IV PRN (09:45)
[2017-08-21] MEDS ORDERED: FENTANYL CITRATE INJ 50 MCG/1 ML 2 ML VIAL IV PRN (09:45)
[2017-08-21] MEDS ORDERED: NALOXONE HCL 0.4 MG/1 ML VIAL/CARP IV PRN (09:45)
[2017-08-21] MEDS ORDERED: EpHEDrine SULFATE INJ 50 MG/ML AMP IV PRN (09:45)
[2017-08-21] MEDS ORDERED: BUPIVACAINE 0.5 % 5 MG/1 ML PF 10ML VIAL ONE (10:07)
--- NOTE | 2017-08-21 11:07 | History & Physical Bridge Note ---
H&P Re-Evaluation Bridge Note: I have examined the patient, reviewed the History & Physical and in the interval since the performance of the History & Physical I have noted the following changes of clinical significance: No changes noted
[2017-08-21] MEDS ORDERED: CONRAY 30% 150ML BOTTLE ONE (11:18)
--- NOTE | 2017-08-21 12:25 | [facility] Post Operative Brief Note ---
Immediate Operative Summary Operative Date Aug 21, 2017. Pre-Operative Diagnosis Left Ureteral Stone Post-Operative Diagnosis Left Ureteral Stone Procedure(s) Performed Cystoscopy, Left Ureteroscopy, Laser Lithotripsy; Left Stone Removal, Left Ureteral Stent Insertion Surgeon Dr. Primitivo Velasco Development Advisor Surgeon(s) none Estimated Blood Loss 5ml Findings Consistent with Post-Op Diagnosis Specimens Specimen A) Left ureteral stones for chemical analysis Anesthesia Type Spinal MAC
--- NOTE | 2017-08-21 12:29 | Discharge Instructions ---
Discharge Instructions Date of Service Aug 21, 2017. Visit Reason for Visit: Stones Discharge Discharge Diagnosis / Problem: post op l ureteroscopy Discharge Goals Goal(s): Decrease discomfort, Improve disease control Activity Recommendations Activity Limitations: resume your previous activity no driving on narcotics Anesthesia . Post Anesthesia Instructions: If you have had General Anesthesia or IV Sedation: * Do not drive today. * Resume driving when surgeon permits. * Do not make important decisions or sign legal documents today. * Call surgeon for: 1. Temperature elevations greater than 101 degrees F. 2. Uncontrollable pain. 3. Excessive bleeding. 4. Persistent nausea and vomiting. 5. Medication intolerance (nausea, vomiting or rash). * For nausea and vomiting use only clear liquids such as: tea, soda, bouillon until nausea subsides, then gradually increase diet as tolerated. * If you have any concerns or questions, call your surgeon's office. If physician is unavailable and it is an emergency, call 911 or go to the nearest emergency room. . Diet Recommendations Recommended Home Diet: resume previous diet Procedures Procedures Performed: Cystoscopy, Left Ureteroscopy, Laser Lithotripsy; Left Stone Removal, Left Ureteral Stent Insertion Pending Studies Studies pending at discharge: no Medical Emergencies . Who to Call and When: Medical Emergencies: If at any time you feel your situation is an emergency, please call 911 immediately. . Non-Emergent Contact Non-Emergency issues call your: Urologist . . "Provider Documentation" section prepared by Primitivo Velasco. .
--- NOTE | 2017-08-21 12:45 | OPERATIVE REPORT ---
DATE OF OPERATION: 08/21/2017 PROCEDURE: Left ureteroscopy, laser lithotripsy, stone extraction and stent placement. HISTORY OF PRESENTATION: The patient is a 47-year-old female who had a history of stones and presented with a pelvic calcification without hydronephrosis but on IVP was confirmed to be a stone. She had significant discomfort, subsequent to this after she had been previously has been scheduled for ureteroscopy and this ureteroscopy was moved up. DESCRIPTION OF THE PROCEDURE: The patient was taken to the cysto suite after she had received spinal anesthesia. The patient has a history of having jaw problems and thus wanted to avoid intubation. The patient was given some sedation. Venodyne stockings were placed. She was given preoperative antibiotics. She was placed in dorsal lithotomy position and prepped and draped in usual sterile fashion. Attempts at passing a dual 21 cystoscope were unsuccessful, so I passed a small semi-rigid ureteroscope into the ureteral orifice and through this was able under fluoroscopy to pass a dual-flex guidewire into the left renal pelvis. At this point, the wire was left in place, the ureteroscopy was passed up to the stone. There was some narrowing just below the stone, but I was able to gently dilate the ureter with the scope. At this point, at settings of 0.6 and 5, the stone was fragmented into multiples fragments. The largest 5 fragments were removed with a 3-prong grasper then with only tiny fragments visible, I placed a 5 x 24 cm stent under fluoroscopy, one end was curl in the bladder and there was a curl up in the region of the renal pelvis. I attest to the content of the Intraoperative Record and any orders documented therein. Any exception s are noted below.
--- NOTE | 2017-08-21 12:54 | Anesthesiology Progress Note ---
Anesthesia Post Op Note Date & Time Aug 21, 2017 at 12:54 Vital Signs Pain Intensity: 0 Vital Signs Past 12 Hours Date Time Temp Pulse Resp B/P (MAP) Pulse Ox O2 Delivery O2 Flow Rate FiO2 08/21/17 12:45 36.4 64 14 139/81 96 Room Air 08/21/17 12:35 61 18 134/82 100 Nasal Cannula 2 08/21/17 12:29 36.2 61 16 139/87 100 Oxymask 10 08/21/17 09:28 36.7 91 18 175/89 (117) 98 Room Air Notes Mental Status: alert / awake / arousable, participated in evaluation Pt Amnestic to Procedure: Yes Nausea / Vomiting: adequately controlled Pain: adequately controlled Airway Patency, RR, SpO2: stable & adequate BP & HR: stable & adequate Hydration State: stable & adequate Neuraxial Anesthesia: was administered, sensory block is resolving Anesthetic Complications: no major complications apparent
[2017-08-21] MEDS ORDERED: ONDANSETRON INJ 2 MG/ML 2 ML VIAL ONE (13:16)
--- NOTE | 2017-08-21 14:01 | DIAGNOSTIC IMAGING REPORT ---
KUB CLINICAL HISTORY: LEFT LASER LITHO AND STENT PLACEMENT TECHNIQUE: Image intensifier COMPARISON STUDY: CT 08/16/2017 FINDINGS: Image intensifier was utilized for laser lithotripsy and left ureteral stent placement. The final images show good position of the stent at its proximal location. IMPRESSION: Image intensifier usage for laser lithotripsy and left ureteral stent placement. The above report was generated using voice recognition software. It may contain grammatical, syntax or spelling errors. Electronically signed by: Antonio Joaquin M.D. 08/21/2017 1:59 PM Dictated Date/Time: 08/21/2017 1:58 PM
[2017-08-21] MEDS ORDERED: ACETAMINOPHEN 500 MG TAB PO ONE (17:45)
== END 2017-08-21 18:40 | disposition home or self-care (01) ==
LOC: C.ACU 08:44
PROVIDERS: ATTEND Urology
DX: N20.1 Calculus of ureter (principal); M25.50 Pain in unspecified joint; E05.00 Thyrotoxicosis with diffuse goiter without thyrotoxic crisis or storm; Z87.440 Personal history of urinary (tract) infections; Z82.69 Family history of other diseases of the musculoskeletal system and connective tissue; Z82.49 Family history of ischemic heart disease and other diseases of the circulatory system; Z83.3 Family history of diabetes mellitus

== ENCOUNTER → 2017-09-04 | Outpatient (CLI) | payer BC ==
[~2017-09-04] MED LIST changes: -ARMOUR THYROID PO; -CIPROFLOXACIN / D5W 400 MG IV SCH; +GABA-1220 PO; -GABA1CAP5 PO; -LACTATED RINGER'S 1000ML 1,000 ML IV SCH; +NITR1CAP33 PO; -ONDA4TAB10 SL; -THYR15TA PO
--- NOTE | 2017-09-04 09:06 | DIAGNOSTIC IMAGING REPORT ---
KUB CLINICAL HISTORY: URETERIC STONE COMPARISON STUDY: 07/26/2017 FINDINGS: There is no pathologic bowel dilatation. There are no calcifications suspicious for renal calculi. The previously identified 6 mm distal left ureteral calculus is no longer visualized. A left-sided double pigtail left ureteral stent is visualized. IMPRESSION: 1. Left-sided nephroureteral stent 2. No urinary tract calculi identified Electronically signed by: Marcos Lira M.D. 09/04/2017 9:04 AM Dictated Date/Time: 09/04/2017 9:03 AM
== END | disposition home or self-care (01) ==
LOC: C.RAD 08:45
PROVIDERS: ATTEND Urology
DX: N20.1 Calculus of ureter (principal); Z96.0 Presence of urogenital implants

== ENCOUNTER → 2017-09-29 | Outpatient (CLI) | payer BC ==
--- NOTE | 2017-09-29 09:39 | DIAGNOSTIC IMAGING REPORT ---
SI JOINTS 3 OR MORE VIEWS CLINICAL HISTORY: M53.3 Sacroiliac [id number] pain COMPARISON STUDY: None FINDINGS: Normal study IMPRESSION: Normal study The above report was generated using voice recognition software. It may contain grammatical, syntax or spelling errors. Electronically signed by: Antonio Joaquin M.D. 09/29/2017 9:38 AM Dictated Date/Time: 09/29/2017 9:37 AM
== END | disposition home or self-care (01) ==
LOC: C.RAD1850 09:16
PROVIDERS: ATTEND Internal Medicine
DX: M53.3 Sacrococcygeal disorders, not elsewhere classified (principal)

== ENCOUNTER → 2017-10-05 | Outpatient (CLI) | payer BC ==
--- NOTE | 2017-10-08 12:41 | MAMMOGRAPHY REPORT ---
BILATERAL DIGITAL SCREENING MAMMOGRAM TOMOSYNTHESIS WITH CAD: 10/05/2017 CLINICAL HISTORY: Routine screening. TECHNIQUE: Breast tomosynthesis in addition to standard 2D mammography was performed. Current study was also evaluated with a Computer Aided Detection (CAD) system. COMPARISON: Comparison is made to exams dated: 05/12/2014 mammogram, 03/14/2013 mammogram, 07/19/2012 u ltrasound, 07/19/2012 mammogram, 07/03/2012 mammogram, and 02/14/2011 mammogram - [facility] enter. BREAST COMPOSITION: The tissue of both breasts is heterogeneously dense, which may obscure small mas ses. FINDINGS: No suspicious masses, calcifications, or areas of architectural distortion are noted in ei ther breast. There has been no significant interval change compared to prior exams. IMPRESSION: ACR BI-RADS CATEGORY 1: NEGATIVE There is no mammographic evidence of malignancy. A 1 year screening mammogram is recommended. The pa tient will receive written notification of the results. Approximately 10% of breast cancers are not detected with mammography. A negative mammographic report should not delay biopsy if a clinically suggestive mass is present. Tiffanie Vee M.D. ah/:10/05/2017 07:45:00 Airplane Tester: Clive ANGELA(Brianna)(M), [facility] letter sent: Normal 1/2 BI-RADS Code: ACR BI-RADS Category 1: Negative
== END | disposition home or self-care (01) ==
LOC: C.MAMM 07:15
PROVIDERS: ATTEND Obstetrics & Gynecology
DX: Z12.31 Encounter for screening mammogram for malignant neoplasm of breast (principal); E06.3 Autoimmune thyroiditis; E05.00 Thyrotoxicosis with diffuse goiter without thyrotoxic crisis or storm

== ENCOUNTER → 2017-10-05 | Outpatient (CLI) | payer BC | END | disposition home or self-care (01) | LOC: C.LABBC 14:41 | PROVIDERS: ATTEND Internal Medicine Endocrinology, Diabetes & Metabolism | DX: E05.00 Thyrotoxicosis with diffuse goiter without thyrotoxic crisis or storm (principal); E06.3 Autoimmune thyroiditis ==

== ENCOUNTER → 2017-10-15 | Outpatient (CLI) | payer BC ==
[~2017-10-15] MED LIST changes: +SINCALIDE INJ 1.4 MCG in SODIUM CHLORIDE 0.9% 100ML 100 ML IV SCH
--- NOTE | 2017-10-15 09:52 | DIAGNOSTIC IMAGING REPORT ---
HEPATOBILIARY EF IMAGING CLINICAL HISTORY: 47 years-old Female presenting with R10.11 Intermittent right upper quadrant abdominal pain. TECHNIQUE: Dynamic imaging of the gallbladder was initiated 65 minutes after administration of 5.6 mCi of technetium 99m Choletec. Imaging was obtained every 5 minutes over a span of 40 minutes. 1.4 mcg of sincalide was injected 5 minutes prior to the start of imaging. The gallbladder ejection fraction was calculated. COMPARISON: CT from 08/16/2017. FINDINGS: Hepatobiliary scan demonstrates normal radiotracer uptake by the liver and normal excretion into the common duct and gallbladder. Expected radiotracer activity within small bowel indicates an unobstructed common duct. The gallbladder subsequently demonstrates normal contraction with decreased radiotracer activity. Gallbladder ejection fraction measures 99%. Reference range: Unequivocally normal: Greater than 50% Unequivocally abnormal: Less than 35% IMPRESSION: 1. Normal gallbladder ejection fraction. No evidence of chronic cholecystitis. Electronically signed by: Jeff Lowe M.D. 10/15/2017 9:51 AM Dictated Date/Time: 10/15/2017 9:50 AM
== END | disposition home or self-care (01) ==
LOC: C.NUCL 07:35
PROVIDERS: ATTEND Family Medicine
DX: R10.11 Right upper quadrant pain (principal)

== ENCOUNTER → 2018-02-21 | Outpatient (CLI) | payer BC ==
[~2018-02-21] MED LIST changes: -SINCALIDE INJ 1.4 MCG in SODIUM CHLORIDE 0.9% 100ML 100 ML IV SCH
== END | disposition home or self-care (01) ==
LOC: C.PAPS 13:55
PROVIDERS: ATTEND Obstetrics & Gynecology
DX: Z01.419 Encounter for gynecological examination (general) (routine) without abnormal findings (principal)

== ENCOUNTER → 2018-02-21 | Outpatient (CLI) | payer BC | END | disposition home or self-care (01) | LOC: C.LABSPEC 16:10 | PROVIDERS: ATTEND Obstetrics & Gynecology | DX: N94.810 Vulvar vestibulitis (principal) ==

== ENCOUNTER 2019-09-12 09:40 | Observation (INO) ==
[~2019-09-12 09:40] MED LIST changes: -ACET650S10 PO; -BCPILLS PO; -GABA-1220 PO; -HYDR-5688 PO; -NITR1CAP33 PO; -ONDA4TAB46 PO; +SODIUM CHLORIDE 0.9% 1000ML 1,000 ML IV SCH; -TAMS0.4C38 PO
[2019-09-12] MEDS ORDERED: LACTATED RINGER'S 1,000 ML IV SCH (10:30)
[2019-09-12 11:16] LABS: Hematocrit (blood only) 17.7 % (37-47); Hemoglobin 6.2 g/dL (12.0-16.0); Mean Corpuscular Hemoglobin 30.2 pg (25-34); Mean Corpuscular Volume 86.3 fL (80-100); Mean Platelet Volume 10.5 fL (7.4-10.4); Platelet Count 233 K/uL (130-400); RDW Coefficient of Variation 12.7 % (11.5-14.5); RDW Standard Deviation 40.1 fL (36.4-46.3); Red Blood Count 2.05 M/uL (4.2-5.4); White Blood Count 8.95 K/uL (4.8-10.8)
[2019-09-12] MEDS ORDERED: SODIUM CHLORIDE 0.9% 250 ML IV PRN (11:49)
[2019-09-12] MEDS ORDERED: fentaNYL citrate 100 MCG/2 ML VIAL ONE (12:52)
[2019-09-12] MEDS ORDERED: LIDOCAINE HCL 2% 2 ML VIAL/AMP(20MG/ML) INFIL ONE (12:52)
[2019-09-12] MEDS ORDERED: PROPOFOL IV EMULSION 10 MG/ML 20 ML VIAL IV ONE (12:52)
[2019-09-12] MEDS ORDERED: ONDANSETRON INJ 2 MG/ML 2 ML VIAL ONE (12:52)
[2019-09-12] MEDS ORDERED: MIDAZOLAM HCL 1 MG/ML 2ML VIAL ONE (12:52)
[2019-09-12] MEDS ORDERED: CEFAZOLIN 1,000 MG/7.5 ML IV PUSH IV ONE (13:04)
--- NOTE | 2019-09-12 13:08 | Anesthesiology Consultation ---
Date of Service September 12, 2019 Assessment & Plan Chart Review Chart Review: Acceptable Risk for Surgery Consults Requested none History Surgery Operation Date: 09/12/19 12:15 Proposed Procedures p Dilation and Curettage, - Brittany Leal MD, FACOG s Hysteroscopy with Myosure - Brittany Leal MD, FACOG Height/Weight Height: 5 ft 4 in Weight: 70 kg Allergies Allergy/AdvReac Type Severity Reaction Status Date / Time morphine Allergy Severe ANAPHYLAXIS Verified 09/12/19 12:13 prednisone Allergy Intermediate RASH Verified 09/12/19 12:13 gluten Allergy Unknown GI Verified 09/12/19 12:13 UPSET,MOUTH SORES codeine AdvReac Intermediate GI UPSET Verified 09/12/19 12:13 hydrocodone AdvReac Intermediate GI UPSET Verified 09/12/19 12:13 oxycodone AdvReac Unknown GI UPSET Verified 09/12/19 12:13 Medications Home Medications Medication Instructions Recorded Confirmed Last Taken cholecalciferol (vitamin D3) 25 1,000 units PO QAM 04/04/19 09/12/19 09/10/19 mcg (1,000 unit) capsule gabapentin 300 mg capsule 300 mg PO TID #90 cap 05/08/19 09/12/19 09/10/19 gabapentin [Neurontin] 100 mg PO TID 09/10/19 09/12/19 09/10/19 norethindrone-e.estradiol-iron 1 tab PO UD 09/10/19 09/12/19 Unknown [Joseph Fe 1.5/30 (28)] ibuprofen 600 mg PO Q6H PRN 09/12/19 09/12/19 09/12/19 ondansetron HCl [Zofran] 4 mg PO TID PRN 09/12/19 09/12/19 Unknown Active Medications Generic Name Dose Route Start Last Admin Trade Name Freq PRN Reason Stop Dose Admin Lactated Ringer's 1,000 mls @ 125 mls/hr 09/12/19 10:30 09/12/19 10:56 Lr IV 10/12/19 10:29 125 mls/hr .Q8H TWYLA Administration NPO Date Last Intake of Fluids: 09/12/19 Time Last Intake of Fluids: 07:00 Date Last Intake of Solids: 02/28/20 Time Last Intake of Solids: 07:00 Past Medical History Medical History Abdominal pain (Inactive) History of parvovirus B19 infection Nephrolithiasis (Inactive) SI (sacroiliac) joint dysfunction Submucous uterine fibroid Vomiting (Inactive) Vulvar vestibulitis (Inactive) Past Family History Family History Father Coronary heart disease Diabetes Hypertension Myocardial infarction Grandfather (Paternal) Diabetes Sister Hyperthyroidism Mother Osteoarthritis Denies family history of Ovarian cancer Breast cancer Colorectal cancer Past Surgical History Surgical History H/O Achilles tendon repair (Resolved) History of dental surgery (Resolved) Hx of tympanostomy tubes (Resolved) S/P ear surgery LEFT EAR PRESSURE EQUALIZATION TUBE Status post surgery PRIMARY REPAIR OF RUPTURED ACHILLES TENDON Social History Smoking Status: Never smoker Hx Alcohol Use: Yes (social) Hx Substance Use: No Physical Exam Vital Signs Last Vital Signs Temp 37.2 C 09/12/19 13:00 Pulse 96 H 09/12/19 13:00 Resp 18 09/12/19 13:00 BP 141/85 H 09/12/19 13:00 Pulse Ox 100 09/12/19 13:00 Testing Laboratory Results 09/12/19 10:57 Blood Type O Positive 09/12/19 10:57 Antibody Screen NEGATIVE 09/12/19 10:57
[2019-09-12] MEDS ORDERED: ROCURONIUM BROMIDE 10 MG/ML 5 ML VIAL ONE (13:42)
[2019-09-12] MEDS ORDERED: NEOSTIGMINE METHYLSULFATE 5 MG/5 ML SYR ONE (13:42)
[2019-09-12] MEDS ORDERED: GLYCOPYRROLATE 0.2 MG/ML VIAL ONE (13:42)
[2019-09-12] MEDS ORDERED: PROMETHAZINE HCL 12.5 MG in SODIUM CHLORIDE 0.9% 50 ML IV PRN (14:19)
[2019-09-12] MEDS ORDERED: ePHEDrine sulfate 50 MG/ML AMP IV PRN (14:19)
[2019-09-12] MEDS ORDERED: HYDROmorphone INJ 2 MG/ML SYR/VIAL IV PRN (14:19)
[2019-09-12] MEDS ORDERED: fentaNYL citrate 100 MCG/2 ML VIAL IV PRN (14:19)
[2019-09-12] MEDS ORDERED: ATROPINE SULFATE 0.1 MG/ML 10ML SYR IV PRN (14:19)
[2019-09-12] MEDS ORDERED: ONDANSETRON INJ 2 MG/ML 2 ML VIAL IV PRN ×3 (14:19→18:54)
[2019-09-12] MEDS ORDERED: IBUPROFEN 600 MG TAB PO PRN (16:26)
[2019-09-12] MEDS ORDERED: KETOROLAC 30 MG/ML VIAL IV PRN (16:26)
[2019-09-12] MEDS ORDERED: METOCLOPRAMIDE HCL INJ 5 MG/ML 2 ML VIAL IV PRN (16:26)
[2019-09-12 16:39] LABS: Hematocrit (blood only) 29.1 % (37-47); Hemoglobin 9.9 g/dL (12.0-16.0)
--- NOTE | 2019-09-12 16:43 | Anesthesiology Progress Note ---
Date of Service September 12, 2019 Anesthesia Post Procedure Vital Signs Vital Signs: Temp Pulse Pulse Pulse Resp BP BP 09/12/19 16:40 78 20 166/88 H 09/12/19 16:30 75 12 162/86 H 09/12/19 16:20 81 20 152/84 H 09/12/19 16:10 80 19 157/80 H 09/12/19 16:00 82 20 143/93 H 09/12/19 15:51 36.9 C 93 H 16 126/65 09/12/19 13:00 37.2 C 96 H 18 141/85 H 09/12/19 12:55 37.2 C 96 H 18 141/85 H 09/12/19 12:38 37.1 C 89 20 131/80 09/12/19 12:29 37.0 C 87 18 138/75 09/12/19 12:21 36.7 C 99 H 19 142/86 H 09/12/19 11:41 85 20 142/68 H 09/12/19 09:54 36.4 C L 93 H 16 128/87 Pulse Ox 09/12/19 16:40 100 09/12/19 16:30 100 09/12/19 16:20 100 09/12/19 16:10 100 09/12/19 16:00 100 09/12/19 15:51 99 09/12/19 13:00 100 09/12/19 12:55 100 09/12/19 12:38 100 09/12/19 12:29 100 09/12/19 12:21 100 09/12/19 11:41 100 09/12/19 09:54 100 Pain Intensity Lower Abdomen: Pain Intensity: 0 Transfer of Care Handoff Completed per policy Notes Mental Status: alert / awake / arousable and participated in evaluation Patient Amnestic to Procedure: Yes Nausea / Vomiting: adequately controlled Pain: adequately controlled Airway Patency, RR, SpO2: stable & adequate BP & HR: stable & adequate Hydration State: stable & adequate Anesthetic Complications: no major complications apparent and Pt Satisfied with anesthetic care
[2019-09-12] MEDS ORDERED: ACETAMINOPHEN 325 MG TAB PO PRN (18:54)
[2019-09-12 21:06] LABS: Hematocrit (blood only) 25.2 % (37-47); Hemoglobin 8.5 g/dL (12.0-16.0)
--- NOTE | 2019-09-13 00:26 | Operative Report ---
DATE OF OPERATION: 09/12/2019 SURGEON: Brittany Steen MD PREOPERATIVE DIAGNOSES: Acute vaginal hemorrhage with hypotension and submucous fibroid. POSTOPERATIVE DIAGNOSES: Acute vaginal hemorrhage with hypotension and submucous fibroid. PROCEDURE: Hysteroscopy, D and C and resection of submucous fibroid with MyoSure device. ANESTHESIA: General endotracheal. BLOOD LOSS: Approximately 20 mL during the procedure. HISTORY: The patient is a 49-year-old multiparous white female who had presented with a history of having increased vaginal bleeding approximately 2 weeks ago. An ultrasound had shown the presence of what appeared to be a 3 cm submucous fibroid. Hysterosonogram was done to confirm the presence of the submucous fibroid. She was then scheduled for surgery for resection for 10/06. At that point, she had had only 1 episode of heavy bleeding, Approximately 2 days ago, she presented to the Emergency Room with significant bleeding, passing clots every half an hour, soaking through a pad and tampon during that same time period. Hemoglobin in the Emergency Room was 11.9. She was sent home to do a taper with control pills; however, in the morning of this procedure, she noted that she was very dizzy and lightheaded when standing with ringing in her ears. The bleeding had continued to be every half an hour, passing large clots and the bleeding had substantially increased. She re-presented to the Emergency Room and her hemoglobin was noted to be 6.2. It was then felt prudent to proceed to the OR to resect the submucous fibroid at this point. She received 2 units of blood, one on the call to the OR and then one during the procedure. The patient understands the risks of procedure and is willing to proceed. GROSS FINDINGS: External genitalia are multiparous and without lesions. Cervix is also without lesions, although the external os is dilated to 1 cm. There were some smaller clots noted in the vaginal vault. During the exam, the uterus is mobile and of top normal size. There are no adnexal masses present. Under direct hysteroscopic evaluation, there was noted to be a pedunculated 3 cm fibroid noted to be arising off the posterior wall of the uterus. DESCRIPTION OF PROCEDURE: After the patient received adequate general endotracheal anesthesia, she was prepped and draped in usual sterile fashion. After bladder was emptied, a weighted speculum was placed in the vagina and the anterior lip of the cervix was grasped with a single tooth tenaculum. The cervix did not need dilation as it was already dilated to a #30 Hanks dilator. The MyoSure scope was inserted through the cervical canal. Normal saline was used as expanding medium. Findings were noted as above. The MyoSure device was then used to resect the fibroid. The first MyoSure blade became dull and had to be replaced by a new MyoSure device. The fibroid was then resected to be flushed to the uterine wall. A sharp curettage following the MyoSure removed another small 3 mm piece of fibroid which was sent with the rest of the specimen. The rest of the uterine cavity appeared to be normal. There was no evidence of any other fibroids or polyps. After the fibroid was resected, the case was terminated. Bleeding on the tenaculum site which was controlled with pressure and a single stitch of 2-0 chromic at approximately 11 o'clock. A single tooth tenaculum was needed to decrease the size of the cervical canal, so that the normal saline could expand the uterine cavity. After hemostasis was satisfactory on the cervix, the case was finished. The patient tolerated the procedure well and was stable upon arrival in recovery room. I attest to the content of the Intraoperative Record and any orders documented therein. Any exceptions are noted below. WOODY
--- NOTE | 2019-09-19 18:59 | Discharge Summary ---
ADMISSION DIAGNOSIS: Acute vaginal hemorrhage with hypotension and known submucous fibroid. PRINCIPAL PROCEDURE: Hysteroscopy, D&C and resection of submucous fibroid with MyoSure device. HISTORY OF PRESENT ILLNESS: The patient is a 49-year-old multiparous white female who presented with a history of having increased vaginal bleeding approximately 2 weeks ago. An ultrasound and hysterosonogram were done to confirm the presence of a 3 cm submucous fibroid. She had originally scheduled for surgery and resection of the fibroid on 10/07/2019. However, on 09/10/2019 she presented to the Emergency Room with increased vaginal bleeding. Hemoglobin at that time was 11.9. The bleeding continued despite changes in her control pills to control the bleeding and on 09/13/2019 represented to the Emergency Room with a hemoglobin of 6.6. She was hypotensive and symptomatic with ringing in her ears and lightheadedness and dizziness. We proceeded with the resection of the submucous fibroid at that time. She did receive 2 units of packed red blood cells during her surgery. Her bleeding was minimal at the end of the case and she was observed afterwards for any further heavy vaginal bleeding and to recheck her hemoglobin to be sure she did not need another transfusion. Her hemoglobin following the transfusion went from 6.2 with hematocrit of 17.7 to a hemoglobin of 8.5 and hematocrit of 25.2. She was sent home in good condition to take iron twice a day; script for Niferex iron supplement was sent to the pharmacy for her to take for the next 6 weeks. She is to call for any increase in heavy vaginal bleeding, increased symptoms of shortness of breath, dizziness or lightheadedness or any other concerns. She is also to call for temperature of 101 degrees or higher. She will have a followup visit in the next several weeks.
== END 2019-09-12 20:10 | disposition home or self-care (01) ==
LOC: ED 09:40 → OR 12:44 → 4N 12:44 → OR 12:51